=== PATIENT | female | born 1960 | race Caucasian/White ===

== ENCOUNTER → 2016-03-17 | Outpatient (CLI) | payer OTHER ==
[~2016-03-17] MED LIST: LIDOCAINE 1% 30 ML SDV ONE; NA BICARBONATE 50 MEQ/50 ML VIAL ONE
--- NOTE | 2016-03-17 12:03 | US ---
Ultrasound-Guided Fine-Needle Aspiration Right Thyroid Nodule Indication: 1.3 cm right thyroid nodule with internal calcification. Consent: The procedure, risks, and benefits were discussed with the patient. She agreed to proceed an d signed a consent form. RS Cross-Cutting Measure #226: Current tobacco use: No. Technique: A preprocedural ultrasound was performed and correlated with neck ultrasound from February 19, 2016. The 1.2 x 0.8 x 0.7 cm nodule with internal microcalcifications is grossly unchanged since the prior study. A caudal to cranial trajectory was selected such that the needle would not be orien antionette toward the adjacent right carotid artery. The neck was marked, cleansed with chlorhexidine, and s terilely draped. The skin and deep soft tissues were anesthetized with 1% lidocaine. Utilizing 25-gauge needles in standard needle packing technique, seven separate passes were obtained and submitted to the prisoner classification interviewer present for the procedure. No immediate bleeding or other compl ication. Patient tolerated the procedure well. Impressions 1. Successful ultrasound-guided fine-needle aspiration of right thyroid nodule. 2. Seven separate needle passes were obtained with 25-gauge needles utilizing capillary technique.
== END ==
LOC: FIMAGING 09:42
PROC: 0G9K3ZZ Drainage of Thyroid Gland, Percutaneous Approach (ICD-10-PCS; principal; 2016-03-17)
DX: E04.1 Nontoxic single thyroid nodule (principal)

== ENCOUNTER 2016-10-06 16:44 | Emergency (ER) | payer OTHER ==
[2016-10-06 16:47] VITALS: RESP 16; TEMP 98.4
--- NOTE | 2016-10-06 18:18 | EDPHY ---
H & P Stated Complaint: PAIN BEHIND LEFT KNEE AND CALF Source: Patient Exam Limitations: No limitations - Personal History LMP (Females 10-55): Post Menopausal Current Tetanus/Diphtheria Vaccine: Unsure - Medical/Surgical History Hx Asthma: No Hx Chronic Respiratory Disease: No Hx Diabetes: No Hx Cardiac Disease: No Hx Renal Disease: No Hx Cirrhosis: No Hx Alcoholism: No Hx HIV/AIDS: No Hx Splenectomy or Spleen Trauma: No Other PMH: R FOOT SURGERY. HHT - Social History Smoking Status: Former smoker Time Seen by Provider: 10/06/16 16:58 HPI/ROS: CHIEF COMPLAINT: left leg complaint HISTORY OF PRESENT ILLNESS: 56-year-old female presents emergency department sent from urgent care for left pain behind her knee with swelling. Patient reports this is been going on for the last 2 days, pain is worse with extension. Patient denies trauma, no swelling to her legs, no numbness or tingling to her leg. Patient denies chest pain or shortness of breath, no history of VTE. REVIEW OF SYSTEMS: A comprehensive 10 point review of systems is otherwise negative aside from elements mentioned in the history of present illness. (Sandra Mcdaniels) - Physical Exam Exam: GEN: Awake, alert, oriented, no acute distress RESP: nl resp effort MSK: Left leg with full range of motion of knee, fullness to popliteal fossa on left, no cords in left calf, 2+ pedal pulses, no swelling, sensation intact to light touch, no ankle or hip pain. SKIN: No break in skin (Sandra Mcdaniels) Constitutional: Initial Vital Signs Temperature (C) 36.9 C 10/06/16 16:45 Heart Rate 76 10/06/16 16:45 Respiratory Rate 16 10/06/16 16:45 Blood Pressure 133/91 H 10/06/16 16:45 O2 Sat (%) 95 10/06/16 16:45 O2 Delivery Mode Room Air Allergies/Adverse Reactions: NSAIDS (Non-Steroidal Anti-Inflamma Allergy (Severe, Verified 10/06/16 16:51) CONTRAINDICATED W DZ OF HHT, RISK OF BLEEDING acetaminophen [From Tylenol] Allergy (Intermediate, Verified 10/06/16 16:51) thins blood with syndrome pt has ANTHING THAT THINS THE BLOOD Allergy (Uncoded 10/06/16 16:51) Home Medications: Medication Instructions Recorded Cholecalciferol Vit D3 [Vitamin D3 1,000 units PO DAILY 12/27/14 (*)] LORazepam [Ativan (*)] 0.5 - 1 mg PO HS PRN 12/27/14 oxyCODONE IR [Oxycodone Ir (*)] 2.5 - 5 mg PO TID PRN 12/27/14 Muscle Relaxant 10/06/16 Paxil 10/06/16 Medical Decision Making - Diagnostics Imaging: Discussed imaging studies w/ call center manager Radiologist ED Course/Re-evaluation: 56-year-old female presents with discomfort behind her left knee. Ultrasound ordered showing no evidence of DVT. Patient does have a small Arnold cyst. I have recommended rest, ice, elevation, compression and follow up with orthopedist for any continued symptoms. (Sandra Mcdaniels) Differential Diagnosis: Diagnosis considered but not limited to muscle strain, DVT, Arnold cyst, fracture , compartment syndrome (Sandra Mcdaniels) Other Provider: The patient was evaluated and managed by the Physician Concrete Vibrator Operator/ Nurse Practitioner. My co-signature indicates that I have reviewed this chart and I agree with the findings and plan of care as documented. I am the secondary supervising physician. 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 Follow up with orthopedist for any continued problems not improving in the next 10-14 days. Return to the emergency department for any new symptoms or concerns. Referrals: Vu Payton MD [Medical Doctor] - As per Instructions (Orthopedist on-call)
[2016-10-06 18:45] VITALS: BP 129/91; PULSE 84; O2SAT 93
== END 2016-10-06 18:44 | disposition home or self-care (01) ==
DX: M71.22 Synovial cyst of popliteal space [Baker], left knee (principal); Z87.891 Personal history of nicotine dependence

== ENCOUNTER → 2016-12-30 | Outpatient (CLI) | payer OTHER | LOC: FIMAGING 10:15 | PROVIDERS: ATTEND Obstetrics & Gynecology Gynecology | DX: Z12.31 Encounter for screening mammogram for malignant neoplasm of breast (principal) | CPT/HCPCS: G0202 ==

== ENCOUNTER → 2017-08-23 | Outpatient (CLI) | payer OTHER | LOC: FIMAGING 11:23 | PROVIDERS: ATTEND Podiatrist | DX: S86.011A Strain of right Achilles tendon, initial encounter (principal); M76.61 Achilles tendinitis, right leg ==

== ENCOUNTER → 2018-01-04 | Outpatient (CLI) | payer OTHER | LOC: BHFA 12:45 | PROVIDERS: ATTEND Internal Medicine Cardiovascular Disease | DX: R06.02 Shortness of breath (principal); R00.2 Palpitations ==

== ENCOUNTER → 2018-01-12 | Outpatient (CLI) | payer OTHER | LOC: FIMAGING 10:21 | PROVIDERS: ATTEND Obstetrics & Gynecology Gynecology | DX: Z12.31 Encounter for screening mammogram for malignant neoplasm of breast (principal); Z80.3 Family history of malignant neoplasm of breast ==

== ENCOUNTER → 2018-02-08 | Outpatient (CLI) | payer OTHER | LOC: BHLMT 11:00 | PROVIDERS: ATTEND Internal Medicine Cardiovascular Disease | DX: R00.2 Palpitations (principal) ==

== ENCOUNTER → 2018-02-22 | Outpatient (CLI) | payer OTHER | LOC: BHFA 14:00 | PROVIDERS: ATTEND Internal Medicine Cardiovascular Disease | DX: R06.02 Shortness of breath (principal) ==